=== PATIENT | male | born 1990 | race Caucasian/White ===

== ENCOUNTER 2019-03-07 02:30 | Emergency (ER) | payer BC, SELFPAY ==
[2019-03-07] MEDS ORDERED: Ibuprofen 800 MG TAB ONE (02:54)
[2019-03-07] MEDS ORDERED: HYDROcodone/Acetaminophen 10/325 mg Tablet ONE (02:54)
[2019-03-07] MEDS ORDERED: Triple Antibiotic Oint 1 GM Packet ONE (03:09)
--- NOTE | 2019-03-07 06:43 | RAD ---
RIGHT CLAVICLE TWO VIEWS: 03/07/2019 FINDINGS: An oblique fracture of the clavicle is present at the junction of the middle and distal thirds. The distal fragment is inferior to the proximal. The AC joint is not widened. IMPRESSION: Clavicular fracture. POS: HOME
== END 2019-03-07 03:30 | disposition home or self-care (01) ==
LOC: BURERS 02:30
DX: S42.031A Displaced fracture of lateral end of right clavicle, initial encounter for closed fracture (principal); S01.02XA Laceration with foreign body of scalp, initial encounter; S50.811A Abrasion of right forearm, initial encounter; S80.211A Abrasion, right knee, initial encounter; V86.59XA Driver of other special all-terrain or other off-road motor vehicle injured in nontraffic accident, initial encounter
CPT/HCPCS: 12001